=== PATIENT | male | born 2000 | race Hispanic/Latino ===

== ENCOUNTER 2024-01-31 16:07 | Emergency (ER) | payer OTHER ==
[~2024-01-31] VITALS: Ht 172.7 cm; Wt 65.8 kg
[2024-01-31] MEDS ORDERED: FAMOTIDINE 20MG VIAL IV ONE (16:30)
[2024-01-31] MEDS ORDERED: 0.9%NACL 1000ML 1,000 ML IV ONE (16:30)
[2024-01-31] MEDS ORDERED: ondanSETRON 4MG INJ IVP ONE (16:30)
[2024-01-31] MEDS ORDERED: Solu-medROL 125MG VIAL IVP ONE (16:30)
[2024-01-31] MEDS: FAMOTIDINE 20MG TAB PO ONE (16:34)
[2024-01-31] MEDS: DiphenhydrAMINE HCL 25 MG CAPSULE PO ONE (16:34)
[2024-01-31] MEDS: dexaMETHasone 4 MG TAB PO SCH (16:35)
[2024-01-31] MEDS ORDERED: FAMO-136 PO (17:20)
[2024-01-31] MEDS ORDERED: DIPH-1242 PO (17:20)
[2024-01-31 17:35] VITALS: BP 140/90; PULSE 98; RESP 18; TEMP 98.8; O2SAT 98
== END 2024-01-31 17:47 | disposition home or self-care (01) ==
LOC: EDH 16:07
DX: T63.441A Toxic effect of venom of bees, accidental (unintentional), initial encounter (principal); Y92.69 Other specified industrial and construction area as the place of occurrence of the external cause
CPT/HCPCS: 99284; Q0163; J8540